=== PATIENT | male | born 1980 ===

== ENCOUNTER 2021-04-09 12:33 | Emergency (ER) | payer OTHER ==
[~2021-04-09] VITALS: Ht 188 cm; Wt 122.5 kg
[2021-04-09] MEDS ORDERED: AMOX-277 PO (14:56)
[2021-04-09] MEDS ORDERED: IBUP800T27 PO (14:56)
[2021-04-09] MEDS ORDERED: KETOROLAC TROMETH 60MG/2ML VIAL IM ONE (15:00)
[2021-04-09 15:27] VITALS: BP 145/97
== END 2021-04-09 15:46 | disposition home or self-care (01) ==
LOC: ER 12:44
DX: L03.113 Cellulitis of right upper limb (principal)
CPT/HCPCS: 96372; 99283; J1885